=== PATIENT | male | born 1980 | race Caucasian/White ===

== ENCOUNTER → 2016-12-31 | Outpatient (CLI) | payer OTHER, BC ==
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
== END | disposition home or self-care (01) ==
LOC: SMRI 07:43
DX: M50.123 Cervical disc disorder at C6-C7 level with radiculopathy (principal); M99.81 Other biomechanical lesions of cervical region
CPT/HCPCS: 72141